=== PATIENT | male | born 1985 | race African-American/Black ===

== ENCOUNTER 2021-02-03 19:09 | Emergency (ER) | payer MEDICAID ==
[~2021-02-03] VITALS: Ht 170.2 cm; Wt 75.0 kg
[2021-02-03 19:49] VITALS: BP 135/79
[2021-02-03] MEDS ORDERED: CEFTRIAXONE 1 G PREMIX 50 ML IV ONE (21:00)
[2021-02-03] MEDS ORDERED: CEPH500C2 MT (21:22)
== END 2021-02-03 22:09 | disposition home or self-care (01) ==
LOC: ER 19:09
DX: L08.89 Other specified local infections of the skin and subcutaneous tissue (principal); B96.89 Other specified bacterial agents as the cause of diseases classified elsewhere
CPT/HCPCS: 96374; 99283; J0696